=== PATIENT | female | born 1980 | race Caucasian/White ===

== ENCOUNTER → 2022-04-27 | Day surgery (SDC) | payer BC ==
[~2022-04-27] MED LIST: Midazolam 1 MG/ML 2 ML SDV IV ONE; Propofol 200 MG/20 ML SDV IV ONE
== END ==
LOC: FB.SDS 06:00
PROVIDERS: ATTEND Surgery
DX: Z12.11 Encounter for screening for malignant neoplasm of colon (principal); K63.5 Polyp of colon; K57.30 Diverticulosis of large intestine without perforation or abscess without bleeding; Z80.0 Family history of malignant neoplasm of digestive organs; Z79.899 Other long term (current) drug therapy; Z88.0 Allergy status to penicillin; Z90.710 Acquired absence of both cervix and uterus
CPT/HCPCS: 45384; 88305; J2250; J2704